=== PATIENT | female | born 1970 | race Caucasian/White ===

== ENCOUNTER → 2016-12-14 | Outpatient (CLI) | payer BC ==
[2016-12-14 07:02] LABS: ANION GAP 9 MEQ/L (8-16); BLOOD UREA NITROGEN 15 MG/DL (7-18); CALCIUM LEVEL 8.6 MG/DL (8.5-10.1); CARBON DIOXIDE LEVEL 28 MEQ/L (21-32); CHLORIDE LEVEL 107 MEQ/L (98-107); CREATININE FOR GFR 0.83 MG/DL (0.55-1.02); GLOMERULAR FILTRATION RATE > 60.0 (>58); GLUCOSE, FASTING 105 MG/DL (70-105); POTASSIUM SERUM 4.1 MEQ/L (3.5-5.1); SODIUM LEVEL 144 MEQ/L (136-145)
== END ==
LOC: M LAB 06:02
PROVIDERS: ATTEND Physician Assistant
DX: E11.9 Type 2 diabetes mellitus without complications (principal)

== ENCOUNTER → 2017-04-13 | Outpatient (CLI) | payer BC ==
[2017-04-13 07:01] LABS: ANION GAP 6 MEQ/L (8-16); BLOOD UREA NITROGEN 18 MG/DL (7-18); CALCIUM LEVEL 8.7 MG/DL (8.5-10.1); CARBON DIOXIDE LEVEL 29 MEQ/L (21-32); CHLORIDE LEVEL 108 MEQ/L (98-107); CREATININE FOR GFR 0.69 MG/DL (0.55-1.02); GLOMERULAR FILTRATION RATE > 60.0 (>58); GLUCOSE, FASTING 104 MG/DL (70-105); SODIUM LEVEL 143 MEQ/L (136-145)
== END ==
LOC: M LAB 06:09
PROVIDERS: ATTEND Family Medicine
DX: E11.9 Type 2 diabetes mellitus without complications (principal)

== ENCOUNTER → 2017-06-16 | Outpatient (CLI) | payer BC ==
[2017-06-16 07:36] LABS: BASO % 0.6 % (0.0-1.0); EOS # 0.1 K/mm3 (0.0-0.50); EOS % 1.7 % (0.0-3.0); LARGE UNSTAINED CELL # 0.1 K/mm3 (0.0-0.4); LARGE UNSTAINED CELL % 2.1 % (0.0-4.0); LYMPH # 2.8 K/mm3 (1.5-4.5); LYMPH % 40.9 % (24.0-44.0); MEAN CORPUSCULAR HEMOGLOBIN 30.2 pg (27.0-33.0); MEAN CORPUSCULAR HGB CONC 33.3 g/dl (32.0-36.5); MEAN CORPUSCULAR VOLUME 90.7 fl (80.0-96.0); MONO # 0.4 K/mm3 (0.0-0.8); MONO % 5.6 % (0.0-5.0); NEUTROPHILS # 3.3 K/mm3 (1.8-7.7); NEUTROPHILS % 49.1 % (36.0-66.0); PLATELET COUNT, AUTOMATED 202 k/mm3 (150-450); RED CELL DISTRIBUTION WIDTH 12.6 % (11.5-14.5); WHITE BLOOD COUNT 6.6 K/mm3 (4.0-10.0)
[2017-06-16 08:16] LABS: ALBUMIN 3.6 GM/DL (3.2-5.2); ALBUMIN/GLOBULIN RATIO 1.09 (1.00-1.93); ALKALINE PHOSPHATASE 57 U/L (45-117); ALT/SGPT 32 U/L (12-78); ANION GAP 9 MEQ/L (8-16); AST/SGOT 19 U/L (15-37); BILIRUBIN,TOTAL 0.3 MG/DL (0.2-1.0); BLOOD UREA NITROGEN 16 MG/DL (7-18); CALCIUM LEVEL 8.9 MG/DL (8.5-10.1); CARBON DIOXIDE LEVEL 25 MEQ/L (21-32); CHLORIDE LEVEL 112 MEQ/L (98-107); CREATININE FOR GFR 0.66 MG/DL (0.55-1.02); GLOMERULAR FILTRATION RATE > 60.0 (>58); GLUCOSE, FASTING 109 MG/DL (70-105); POTASSIUM SERUM 4.2 MEQ/L (3.5-5.1); SODIUM LEVEL 146 MEQ/L (136-145); TOTAL PROTEIN 6.9 GM/DL (6.4-8.2)
== END ==
LOC: M LAB 06:06
PROVIDERS: ATTEND Family Medicine
DX: E55.9 Vitamin D deficiency, unspecified (principal); E11.9 Type 2 diabetes mellitus without complications; K21.9 Gastro-esophageal reflux disease without esophagitis

== ENCOUNTER → 2017-09-29 | Outpatient (CLI) | payer BC ==
[2017-09-29 07:20] LABS: ANION GAP 8 MEQ/L (8-16); BLOOD UREA NITROGEN 21 MG/DL (7-18); CALCIUM LEVEL 8.8 MG/DL (8.5-10.1); CARBON DIOXIDE LEVEL 27 MEQ/L (21-32); CHLORIDE LEVEL 107 MEQ/L (98-107); CHOLESTEROL LEVEL 153 MG/DL (<200); CREATININE FOR GFR 0.89 MG/DL (0.55-1.02); GLOMERULAR FILTRATION RATE > 60.0 (>58); GLUCOSE, FASTING 122 MG/DL (70-105); POTASSIUM SERUM 4.2 MEQ/L (3.5-5.1); SODIUM LEVEL 142 MEQ/L (136-145); TRIGLYCERIDES LEVEL 35 MG/DL (<150)
== END ==
LOC: M LAB 06:27
PROVIDERS: ATTEND Physician Assistant
DX: E11.9 Type 2 diabetes mellitus without complications (principal)

== ENCOUNTER → 2017-12-30 | Outpatient (CLI) | payer BC ==
[2017-12-30 07:27] LABS: ESTIMATED AVERAGE GLUCOSE 140 MG/DL (60-110); HEMOGLOBIN A1c 6.5 %
[2017-12-30 07:28] LABS: ALBUMIN/GLOBULIN RATIO 1.18 (1.00-1.93); ALKALINE PHOSPHATASE 56 U/L (45-117); ALT/SGPT 23 U/L (12-78); ANION GAP 8 MEQ/L (8-16); AST/SGOT 14 U/L (7-37); BILIRUBIN,TOTAL 0.3 MG/DL (0.2-1.0); BLOOD UREA NITROGEN 20 MG/DL (7-18); CALCIUM LEVEL 8.7 MG/DL (8.5-10.1); CARBON DIOXIDE LEVEL 26 MEQ/L (21-32); CHLORIDE LEVEL 108 MEQ/L (98-107); CREATININE FOR GFR 0.81 MG/DL (0.55-1.30); GLOMERULAR FILTRATION RATE > 60.0 (>58); GLUCOSE, FASTING 136 MG/DL (70-100); POTASSIUM SERUM 4.2 MEQ/L (3.5-5.1); SODIUM LEVEL 142 MEQ/L (136-145); TOTAL PROTEIN 7.4 GM/DL (6.4-8.2)
[2017-12-30 07:34] LABS: MALB URINE SIEMENS 12.1 MG/L; MAU/CREAT RATIO 4.7 MCG/MG (0.0-30.0)
== END ==
LOC: M LAB 06:20
DX: E11.9 Type 2 diabetes mellitus without complications (principal)

== ENCOUNTER → 2018-01-13 | Outpatient (CLI) | payer BC ==
[2018-01-13 07:50] LABS: APPEARANCE, URINE MANUAL HAZY (CLEAR); BILIRUBIN, URINE MANUAL NEGATIVE (NEGATIVE); BLOOD URINE MANUAL NEGATIVE (NEGATIVE); COLOR, URINE MANUAL YELLOW (YELLOW); GLUCOSE, URINE (UA) MANUAL NEGATIVE (NEGATIVE); KETONE, URINE MANUAL NEGATIVE (NEGATIVE); LEUKOCYTE ESTERASE, URINE MAN NEGATIVE (NEGATIVE); MICROSCOPIC INDICATED? MAN YES (NO); NITRITE, URINE MANUAL NEGATIVE (NEGATIVE); PROTEIN, URINE MANUAL NEGATIVE (NEGATIVE); UROBILINOGEN, URINE MANUAL NORMAL (NORMAL)
[2018-01-13 07:58] LABS: BACTERIA, URINE NONE SEEN; HYALINE CAST, URINE NONE SEEN /lpf (0-1); MICROSCOPIC EXAM PERFORMED; MUCUS, URINE SMALL AMOUNT (NEGATIVE); RBC, URINE NONE SEEN /hpf (0-3); SQUAMOUS EPITHELIAL CELL URINE SMALL AMOUNT /hpf (SMALL AMT); WBC, URINE 0-1 /hpf (0-3)
== END ==
LOC: M LAB 06:33
DX: R30.0 Dysuria (principal)
CPT/HCPCS: 81000

== ENCOUNTER → 2018-03-22 | Outpatient (CLI) | payer BC ==
[2018-03-22 07:26] LABS: ESTIMATED AVERAGE GLUCOSE 111 MG/DL (60-110); HEMOGLOBIN A1c 5.5 %
[2018-03-22 07:30] LABS: ANION GAP 6 MEQ/L (8-16); BLOOD UREA NITROGEN 15 MG/DL (7-18); CALCIUM LEVEL 8.4 MG/DL (8.5-10.1); CARBON DIOXIDE LEVEL 29 MEQ/L (21-32); CHLORIDE LEVEL 110 MEQ/L (98-107); CREATININE FOR GFR 0.77 MG/DL (0.55-1.30); GLOMERULAR FILTRATION RATE > 60.0 (>58); GLUCOSE, FASTING 93 MG/DL (70-100); SODIUM LEVEL 145 MEQ/L (136-145)
== END ==
LOC: M LAB 06:23
DX: E11.9 Type 2 diabetes mellitus without complications (principal)
CPT/HCPCS: 83036

== ENCOUNTER → 2018-07-13 | Outpatient (CLI) | payer BC ==
[2018-07-13 07:31] LABS: ESTIMATED AVERAGE GLUCOSE 117 MG/DL (60-110); HEMOGLOBIN A1c 5.7 %
[2018-07-13 07:51] LABS: ALBUMIN 3.8 GM/DL (3.2-5.2); ALBUMIN/GLOBULIN RATIO 1.15 (1.00-1.93); ALKALINE PHOSPHATASE 54 U/L (45-117); ALT/SGPT 47 U/L (12-78); ANION GAP 9 MEQ/L (8-16); AST/SGOT 21 U/L (7-37); BILIRUBIN,TOTAL 0.3 MG/DL (0.2-1.0); BLOOD UREA NITROGEN 18 MG/DL (7-18); CALCIUM LEVEL 8.6 MG/DL (8.5-10.1); CARBON DIOXIDE LEVEL 26 MEQ/L (21-32); CHLORIDE LEVEL 106 MEQ/L (98-107); CREATININE FOR GFR 0.78 MG/DL (0.55-1.30); GLOMERULAR FILTRATION RATE > 60.0 (>51); GLUCOSE, FASTING 101 MG/DL (70-100); POTASSIUM SERUM 4.4 MEQ/L (3.5-5.1); SODIUM LEVEL 141 MEQ/L (136-145); TOTAL PROTEIN 7.1 GM/DL (6.4-8.2)
== END ==
LOC: M LAB 06:34
DX: E11.9 Type 2 diabetes mellitus without complications (principal)
CPT/HCPCS: 80053

== ENCOUNTER → 2018-11-10 | Outpatient (REF) | payer BC | LOC: M SFHCLERA 16:42 | PROVIDERS: ATTEND Physician Assistant | DX: N39.0 Urinary tract infection, site not specified (principal) ==

== ENCOUNTER → 2018-12-21 | Outpatient (CLI) | payer BC ==
[2018-12-21 07:55] LABS: HEMOGLOBIN A1c 5.8 %
[2018-12-21 08:06] LABS: MALB URINE SIEMENS 10.3 MG/L; MAU/CREAT RATIO 5.5 MCG/MG (0.0-30.0)
[2018-12-21 08:11] LABS: ALBUMIN 3.8 GM/DL (3.2-5.2); ALT/SGPT 36 U/L (12-78); BILIRUBIN,TOTAL 0.3 MG/DL (0.2-1.0); BLOOD UREA NITROGEN 21 MG/DL (7-18); CALCIUM LEVEL 8.3 MG/DL (8.5-10.1); CARBON DIOXIDE LEVEL 28 MEQ/L (21-32); CHLORIDE LEVEL 108 MEQ/L (98-107); CHOLESTEROL LEVEL 183 MG/DL (<200); CHOLESTEROL RISK RATIO 2.772 (<5); CREATININE FOR GFR 0.78 MG/DL (0.55-1.30); GLOMERULAR FILTRATION RATE > 60.0 (>51); GLUCOSE, FASTING 92 MG/DL (70-100); HDL CHOLESTEROL 66 MG/DL (>40); LDL CHOLESTEROL 110 MG/DL (<100); NON-HDL-C 117 MG/DL; POTASSIUM SERUM 4.2 MEQ/L (3.5-5.1); SODIUM LEVEL 141 MEQ/L (136-145); TOTAL PROTEIN 7.1 GM/DL (6.4-8.2); TRIGLYCERIDES LEVEL 37 MG/DL (<150)
== END ==
LOC: M LAB 06:58
PROVIDERS: ATTEND Physician Assistant
DX: E11.9 Type 2 diabetes mellitus without complications (principal); E66.01 Morbid (severe) obesity due to excess calories

== ENCOUNTER → 2018-12-21 | Outpatient (CLI) | payer BC ==
[2018-12-21 09:47] LABS: ESTRADIOL 45.8 PG/ML; LUTEINIZING HORMONE 14.6 mIU/mL; PROGESTERONE 0.21 NG/ML
[2018-12-23 00:07] LABS: TESTOSTERONE FREE (DIRECT) 1.5 pg/mL (0.0-4.2)
== END ==
LOC: M LAB 07:01
PROVIDERS: ATTEND Obstetrics & Gynecology
DX: N95.1 Menopausal and female climacteric states (principal); E34.9 Endocrine disorder, unspecified; F52.0 Hypoactive sexual desire disorder

== ENCOUNTER → 2019-05-05 | Outpatient (CLI) | payer BC ==
[2019-05-05 10:00] LABS: ESTRADIOL 46.6 PG/ML; FOLLICLE STIMULATING HORMONE 22.3 mIU/mL; PROGESTERONE 0.26 NG/ML
== END ==
LOC: M LAB 07:08
PROVIDERS: ATTEND Obstetrics & Gynecology
DX: F52.0 Hypoactive sexual desire disorder (principal); E34.9 Endocrine disorder, unspecified; N95.1 Menopausal and female climacteric states

== ENCOUNTER → 2019-07-04 | Outpatient (CLI) | payer BC ==
[2019-07-04 07:36] LABS: ALBUMIN 3.7 GM/DL (3.2-5.2); ALT/SGPT 25 U/L (12-78); BILIRUBIN,TOTAL 0.3 MG/DL (0.2-1.0); BLOOD UREA NITROGEN 13 MG/DL (7-18); CALCIUM LEVEL 8.6 MG/DL (8.5-10.1); CARBON DIOXIDE LEVEL 28 MEQ/L (21-32); CHLORIDE LEVEL 108 MEQ/L (98-107); GLOMERULAR FILTRATION RATE > 60.0 (>51); GLUCOSE, FASTING 96 MG/DL (70-100); HEMOGLOBIN A1c 5.3 %; SODIUM LEVEL 142 MEQ/L (136-145); TOTAL PROTEIN 6.6 GM/DL (6.4-8.2)
[2019-07-04 09:39] LABS: TOTAL 25(OH) VITAMIN D 36.2 NG/ML (30.0-100.0)
== END ==
LOC: M LAB 06:36
PROVIDERS: ATTEND Family Medicine
DX: E11.9 Type 2 diabetes mellitus without complications (principal)

== ENCOUNTER → 2019-09-22 | Outpatient (CLI) | payer BC ==
[2019-09-22 18:04] LABS: ESTRADIOL 99.9 PG/ML; FOLLICLE STIMULATING HORMONE 15.7 mIU/mL; LUTEINIZING HORMONE 7.9 mIU/mL; PROGESTERONE 0.21 NG/ML
[2019-09-25 14:56] LABS: TESTOSTERONE FREE (DIRECT) 3.6 pg/mL (0.0-4.2)
== END ==
LOC: M LAB 16:59
PROVIDERS: ATTEND Obstetrics & Gynecology
DX: N95.1 Menopausal and female climacteric states (principal)

== ENCOUNTER → 2019-12-19 | Outpatient (CLI) | payer BC ==
[2019-12-19 08:12] LABS: ALBUMIN 3.6 GM/DL (3.2-5.2); ALT/SGPT 31 U/L (12-78); BILIRUBIN,TOTAL 0.4 MG/DL (0.2-1.0); BLOOD UREA NITROGEN 18 MG/DL (7-18); CARBON DIOXIDE LEVEL 24 MEQ/L (21-32); CHLORIDE LEVEL 112 MEQ/L (98-107); CHOLESTEROL LEVEL 162 MG/DL (<200); CHOLESTEROL RISK RATIO 2.842 (<5); CREATININE FOR GFR 0.71 MG/DL (0.55-1.30); FREE T4 1.02 NG/DL (0.76-1.46); GLOMERULAR FILTRATION RATE > 60.0 (>51); GLUCOSE, FASTING 117 MG/DL (70-100); HDL CHOLESTEROL 57 MG/DL (>40); LDL CHOLESTEROL 97 MG/DL (<100); NON-HDL-C 105 MG/DL; POTASSIUM SERUM 4.1 MEQ/L (3.5-5.1); SODIUM LEVEL 142 MEQ/L (136-145); TOTAL PROTEIN 6.9 GM/DL (6.4-8.2); TRIGLYCERIDES LEVEL 42 MG/DL (<150)
== END ==
LOC: M LAB 07:03
PROVIDERS: ATTEND Physician Assistant
DX: Z00.00 Encounter for general adult medical examination without abnormal findings (principal); E11.9 Type 2 diabetes mellitus without complications; E66.09 Other obesity due to excess calories

== ENCOUNTER → 2019-12-19 | Outpatient (CLI) | payer BC ==
[2019-12-19 07:44] LABS: BASO % 0.5 % (0.0-1.0); EOS # 0.1 10^3/uL (0.0-0.5); EOS % 1.6 % (0.0-3.0); HEMATOCRIT 40.5 % (36.0-47.0); HEMOGLOBIN 13.2 g/dl (12.0-15.5); LYMPH # 3.5 10^3/uL (1.5-5.0); LYMPH % 43.3 % (24.0-44.0); MEAN CORPUSCULAR HEMOGLOBIN 30.1 pg (27.0-33.0); MEAN CORPUSCULAR HGB CONC 32.6 g/dl (32.0-36.5); MEAN CORPUSCULAR VOLUME 92.3 fl (80.0-96.0); MONO # 0.7 10^3/uL (0.0-0.8); MONO % 8.8 % (0.0-5.0); NEUTROPHILS # 3.7 10^3/uL (1.5-8.5); NEUTROPHILS % 45.5 % (36.0-66.0); PLATELET COUNT, AUTOMATED 284 10^3/uL (150-450); RED BLOOD COUNT 4.39 10^6/uL (4.00-5.40)
[2019-12-19 08:15] LABS: ALBUMIN 3.6 GM/DL (3.2-5.2); ALT/SGPT 30 U/L (12-78); BILIRUBIN,TOTAL 0.3 MG/DL (0.2-1.0); BLOOD UREA NITROGEN 18 MG/DL (7-18); CALCIUM LEVEL 8.2 MG/DL (8.5-10.1); CARBON DIOXIDE LEVEL 24 MEQ/L (21-32); CHLORIDE LEVEL 113 MEQ/L (98-107); CHOLESTEROL LEVEL 162 MG/DL (<200); CHOLESTEROL RISK RATIO 2.793 (<5); CPK CREATINE PHOSPHOKINASE 109 U/L (26-192); CREATININE FOR GFR 0.67 MG/DL (0.55-1.30); FERRITIN 27 NG/ML (8-252); FREE T3 2.5 PG/ML (2.2-4.0); FREE T4 1.03 NG/DL (0.76-1.46); GLOMERULAR FILTRATION RATE > 60.0 (>51); GLUCOSE, FASTING 118 MG/DL (70-100); HDL CHOLESTEROL 58 MG/DL (>40); IRON (FE) 93 UG/DL (50-170); LDL CHOLESTEROL 96 MG/DL (<100); NON-HDL-C 104 MG/DL; POTASSIUM SERUM 4.1 MEQ/L (3.5-5.1); SODIUM LEVEL 142 MEQ/L (136-145); TOTAL PROTEIN 6.9 GM/DL (6.4-8.2); TRIGLYCERIDES LEVEL 42 MG/DL (<150); URIC ACID 5.2 MG/DL (2.6-6.0)
[2019-12-19 09:46] LABS: TOTAL 25(OH) VITAMIN D 55.9 NG/ML (30.0-100.0)
[2019-12-19 09:48] LABS: ESTRADIOL 76.2 PG/ML; PROGESTERONE 0.22 NG/ML; VITAMIN B12 LEVEL 631 PG/ML (247-911)
[2019-12-19 09:49] LABS: FOLLICLE STIMULATING HORMONE 8.5 mIU/mL
[2019-12-21 00:06] LABS: INSULIN LEVEL 13.8 uIU/mL (2.6-24.9); TESTOSTERONE FREE (DIRECT) 3.3 pg/mL (0.0-4.2)
== END ==
LOC: M LAB 07:00
PROVIDERS: ATTEND Family Medicine
DX: N95.1 Menopausal and female climacteric states (principal); R53.83 Other fatigue; R63.5 Abnormal weight gain; E34.9 Endocrine disorder, unspecified; Z79.899 Other long term (current) drug therapy

== ENCOUNTER → 2020-03-15 | Outpatient (CLI) | payer BC | LOC: M LABSMTC 14:09 | PROVIDERS: ATTEND Family Medicine | DX: Z11.59 Encounter for screening for other viral diseases (principal) | CPT/HCPCS: C9803; U0003 ==

== ENCOUNTER → 2020-04-15 | Outpatient (CLI) | payer BC ==
[2020-04-15 07:33] LABS: BASO % 0.4 % (0.0-1.0); EOS # 0.1 10^3/uL (0.0-0.5); EOS % 1.1 % (0.0-3.0); HEMATOCRIT 38.3 % (36.0-47.0); HEMOGLOBIN 12.2 g/dl (12.0-15.5); LYMPH # 4.7 10^3/uL (1.5-5.0); MEAN CORPUSCULAR HEMOGLOBIN 30.2 pg (27.0-33.0); MEAN CORPUSCULAR HGB CONC 31.9 g/dl (32.0-36.5); MEAN CORPUSCULAR VOLUME 94.8 fl (80.0-96.0); MONO # 0.6 10^3/uL (0.0-0.8); MONO % 6.3 % (0.0-5.0); PLATELET COUNT, AUTOMATED 261 10^3/uL (150-450); RED BLOOD COUNT 4.04 10^6/uL (4.00-5.40); WHITE BLOOD COUNT 9.5 10^3/uL (4.0-10.0)
[2020-04-15 08:07] LABS: FREE T3 2.3 PG/ML (2.2-4.0); FREE T4 1.03 NG/DL (0.76-1.46); THYROID STIMULATING HORMONE 2.68 uIU/ML (0.358-3.740)
[2020-04-15 10:01] LABS: ESTRADIOL 78.2 PG/ML; LUTEINIZING HORMONE 8.4 mIU/mL; PROGESTERONE 0.39 NG/ML
[2020-04-16 16:08] LABS: TESTOSTERONE FREE (DIRECT) 3.2 pg/mL (0.0-4.2)
== END ==
LOC: M LAB 06:32
PROVIDERS: ATTEND Family Medicine
DX: N95.1 Menopausal and female climacteric states (principal); E34.9 Endocrine disorder, unspecified; E07.89 Other specified disorders of thyroid

== ENCOUNTER → 2020-05-28 | Outpatient (CLI) | payer BC ==
[2020-06-30 10:59] LABS: BASO % 0.3 % (0.0-1.0); EOS # 0.1 10^3/uL (0.0-0.5); EOS % 0.8 % (0.0-3.0); HEMATOCRIT 40.3 % (36.0-47.0); LYMPH # 4.1 10^3/uL (1.5-5.0); LYMPH % 45.9 % (24.0-44.0); MEAN CORPUSCULAR HEMOGLOBIN 30.7 pg (27.0-33.0); MEAN CORPUSCULAR HGB CONC 32.3 g/dl (32.0-36.5); MEAN CORPUSCULAR VOLUME 95.3 fl (80.0-96.0); MONO # 0.7 10^3/uL (0.0-0.8); MONO % 7.4 % (0.0-5.0); NEUTROPHILS % 45.5 % (36.0-66.0); PLATELET COUNT, AUTOMATED 272 10^3/uL (150-450); RED BLOOD COUNT 4.23 10^6/uL (4.00-5.40); WHITE BLOOD COUNT 8.8 10^3/uL (4.0-10.0)
[2020-07-08 08:13] LABS: TESTOSTERONE FREE (DIRECT) See Separate Report PG/ML
[2020-07-08 08:14] LABS: TESTOSTERONE TOTAL FOR T&D See Separate Report NG/DL
[2020-07-12 20:42] LABS: ESTRADIOL 129.6 PG/ML; FOLLICLE STIMULATING HORMONE 7.3 mIU/mL; PROGESTERONE 0.27 NG/ML
== END ==
LOC: M LAB 07:17
PROVIDERS: ATTEND Family Medicine
DX: N93.1 Pre-pubertal vaginal bleeding (principal); E34.9 Endocrine disorder, unspecified; E07.89 Other specified disorders of thyroid

== ENCOUNTER → 2020-07-16 | Outpatient (CLI) | payer BC ==
[2020-07-16 06:58] LABS: HEMATOCRIT 39.8 % (36.0-47.0); HEMOGLOBIN 12.7 g/dl (12.0-15.5); MEAN CORPUSCULAR HEMOGLOBIN 29.5 pg (27.0-33.0); MEAN CORPUSCULAR HGB CONC 31.9 g/dl (32.0-36.5); MEAN CORPUSCULAR VOLUME 92.6 fl (80.0-96.0); PLATELET COUNT, AUTOMATED 237 10^3/uL (150-450)
[2020-07-16 07:14] LABS: HEMOGLOBIN A1c 5.5 %
[2020-07-16 07:31] LABS: ALBUMIN 3.6 GM/DL (3.2-5.2); ALT/SGPT 33 U/L (12-78); BILIRUBIN,TOTAL 0.4 MG/DL (0.2-1.0); BLOOD UREA NITROGEN 15 MG/DL (7-18); CALCIUM LEVEL 8.6 MG/DL (8.5-10.1); CARBON DIOXIDE LEVEL 29 MEQ/L (21-32); CHLORIDE LEVEL 107 MEQ/L (98-107); CHOLESTEROL LEVEL 171 MG/DL (<200); CREATININE FOR GFR 0.79 MG/DL (0.55-1.30); GLOMERULAR FILTRATION RATE > 60.0 (>51); GLUCOSE, FASTING 112 MG/DL (70-100); HDL CHOLESTEROL 77 MG/DL (>40); LDL CHOLESTEROL 87 MG/DL (<100); NON-HDL-C 94 MG/DL; POTASSIUM SERUM 3.9 MEQ/L (3.5-5.1); SODIUM LEVEL 142 MEQ/L (136-145); TOTAL PROTEIN 7.2 GM/DL (6.4-8.2); TRIGLYCERIDES LEVEL 35 MG/DL (<150)
[2020-07-16 07:40] LABS: LYMPHOCYTES 39 % (16-44); MONOCYTES 6 % (0-5); NEUTROPHILS 54 % (28-66); PLATELET ESTIMATE NORMAL (NORMAL)
[2020-07-16 07:41] LABS: ANISOCYTOSIS 1+
[2020-07-16 07:42] LABS: MALB URINE SIEMENS 14.2 MG/L; MAU/CREAT RATIO 5.2 MCG/MG (0.0-30.0)
== END ==
LOC: M LAB 06:32
PROVIDERS: ATTEND Family Medicine
DX: E11.9 Type 2 diabetes mellitus without complications (principal)

== ENCOUNTER → 2020-08-02 | Outpatient (CLI) | payer BC ==
[2020-08-02 07:58] LABS: HEMATOCRIT 39.5 % (36.0-47.0); HEMOGLOBIN 12.2 g/dl (12.0-15.5); MEAN CORPUSCULAR HEMOGLOBIN 29.6 pg (27.0-33.0); MEAN CORPUSCULAR HGB CONC 30.9 g/dl (32.0-36.5); MEAN CORPUSCULAR VOLUME 95.9 fl (80.0-96.0); PLATELET COUNT, AUTOMATED 252 10^3/uL (150-450); RED BLOOD COUNT 4.12 10^6/uL (4.00-5.40); WHITE BLOOD COUNT 8.7 10^3/uL (4.0-10.0)
[2020-08-02 08:23] LABS: ATYPICAL LYMPH 2 % (0-5); EOSINOPHILS 3 % (0-3); LYMPHOCYTES 49 % (16-44); MONOCYTES 1 % (0-5); NEUTROPHILS 45 % (28-66); NUCLEATED RED BLOOD CELL 1 % (0-0)
[2020-08-02 08:24] LABS: SMUDGE CELLS 1+
[2020-08-02 08:25] LABS: PLATELET ESTIMATE NORMAL (NORMAL)
[2020-08-02 09:18] LABS: ESTRADIOL 53.5 PG/ML; FOLLICLE STIMULATING HORMONE 19.1 mIU/mL; PROGESTERONE 0.24 NG/ML
[2020-08-03 14:08] LABS: TESTOSTERONE FREE (DIRECT) 3.6 pg/mL (0.0-4.2)
== END ==
LOC: M LAB 07:30
PROVIDERS: ATTEND Family Medicine
DX: N95.1 Menopausal and female climacteric states (principal); E34.9 Endocrine disorder, unspecified; E07.89 Other specified disorders of thyroid

== ENCOUNTER → 2020-11-05 | Outpatient (CLI) | payer BC ==
[2020-11-05 06:52] LABS: BASO # 0.1 10^3/uL (0.0-0.2); BASO % 0.5 % (0.0-1.0); EOS # 0.1 10^3/uL (0.0-0.5); EOS % 1.2 % (0.0-3.0); HEMATOCRIT 41.7 % (36.0-47.0); HEMOGLOBIN 12.8 g/dl (12.0-15.5); LYMPH # 4.7 10^3/uL (1.5-5.0); LYMPH % 47.1 % (24.0-44.0); MEAN CORPUSCULAR HEMOGLOBIN 29.2 pg (27.0-33.0); MEAN CORPUSCULAR HGB CONC 30.7 g/dl (32.0-36.5); MEAN CORPUSCULAR VOLUME 95.2 fl (80.0-96.0); MONO # 0.8 10^3/uL (0.0-0.8); NEUTROPHILS # 4.3 10^3/uL (1.5-8.5); PLATELET COUNT, AUTOMATED 253 10^3/uL (150-450); RED BLOOD COUNT 4.38 10^6/uL (4.00-5.40); WHITE BLOOD COUNT 9.9 10^3/uL (4.0-10.0)
[2020-11-05 11:44] LABS: FOLLICLE STIMULATING HORMONE 22.2 mIU/mL; PROGESTERONE 0.57 NG/ML
[2020-11-06 19:07] LABS: TESTOSTERONE FREE (DIRECT) 6.9 pg/mL (0.0-4.2)
== END ==
LOC: M LAB 06:22
PROVIDERS: ATTEND Family Medicine
DX: Z00.00 Encounter for general adult medical examination without abnormal findings (principal)

== ENCOUNTER → 2021-01-11 | Outpatient (CLI) | payer BC ==
--- NOTE | 2021-01-11 17:47 | ECGEPIP ---
[facility] Test Date: 2021-01-11 Pat Name: MIRIAM WEBER Department: Room: - Gender: Female E Business Manager: maryann : 1970 Requested By: Jade Kovacs Order Number: [id number] Reading MD: Philippe Samuel Measurements Intervals [place] Rate: 51 P: 15 NC: 150 QRS: 25 QRSD: 86 T: 24 QT: 416 QTc: 383 Interpretive Statements Sinus bradycardia Early anterior R wave progression Nonspecific T wave abnormality Comparison tracing not on file Electronically Signed on 01-11-2021 17:47:32 EDT by Philippe Samuel
== END ==
LOC: M EKG 09:42
PROVIDERS: ATTEND Physician Assistant Medical
DX: E11.9 Type 2 diabetes mellitus without complications (principal); Z79.899 Other long term (current) drug therapy; R00.1 Bradycardia, unspecified

== ENCOUNTER → 2021-01-12 | Outpatient (CLI) | payer BC ==
[2021-01-12 09:02] LABS: ALBUMIN 3.7 GM/DL (3.2-5.2); ALT/SGPT 26 U/L (12-78); BILIRUBIN,TOTAL 0.4 MG/DL (0.2-1.0); BLOOD UREA NITROGEN 19 MG/DL (7-18); CALCIUM LEVEL 8.5 MG/DL (8.5-10.1); CARBON DIOXIDE LEVEL 30 MEQ/L (21-32); CHLORIDE LEVEL 106 MEQ/L (98-107); CREATININE FOR GFR 0.73 MG/DL (0.55-1.30); GLOMERULAR FILTRATION RATE > 60.0 (>51); GLUCOSE, FASTING 95 MG/DL (70-100); POTASSIUM SERUM 3.9 MEQ/L (3.5-5.1); SODIUM LEVEL 140 MEQ/L (136-145); TOTAL PROTEIN 6.9 GM/DL (6.4-8.2)
[2021-01-12 10:24] LABS: HEMOGLOBIN A1c 5.2 %
[2021-01-13 12:04] LABS: TOTAL 25(OH) VITAMIN D 80.4 NG/ML (30.0-100.0)
== END ==
LOC: M LAB 08:11
PROVIDERS: ATTEND Physician Assistant
DX: Z00.00 Encounter for general adult medical examination without abnormal findings (principal); E11.9 Type 2 diabetes mellitus without complications; E55.9 Vitamin D deficiency, unspecified

== ENCOUNTER → 2021-06-05 | Outpatient (CLI) | payer BC ==
[2021-06-05 07:41] LABS: HEMOGLOBIN A1c 5.5 %
[2021-06-05 07:57] LABS: ALBUMIN 3.5 GM/DL (3.2-5.2); ALT/SGPT 31 U/L (12-78); BILIRUBIN,TOTAL 0.4 MG/DL (0.2-1.0); BLOOD UREA NITROGEN 14 MG/DL (7-18); CALCIUM LEVEL 8.2 MG/DL (8.5-10.1); CARBON DIOXIDE LEVEL 26 MEQ/L (21-32); CHLORIDE LEVEL 109 MEQ/L (98-107); CHOLESTEROL LEVEL 160 MG/DL (<200); FREE T4 1.07 NG/DL (0.76-1.46); GLOMERULAR FILTRATION RATE > 60.0 (>51); GLUCOSE, FASTING 128 MG/DL (70-100); HDL CHOLESTEROL 62 MG/DL (>40); LDL CHOLESTEROL 88 MG/DL (<100); NON-HDL-C 98 MG/DL; POTASSIUM SERUM 3.7 MEQ/L (3.5-5.1); SODIUM LEVEL 140 MEQ/L (136-145); TOTAL PROTEIN 6.7 GM/DL (6.4-8.2); TRIGLYCERIDES LEVEL 51 MG/DL (<150)
[2021-06-05 08:00] LABS: MALB URINE SIEMENS 13.5 MG/L; MAU/CREAT RATIO 6.1 MCG/MG (0.0-30.0)
[2021-06-05 11:36] LABS: TOTAL 25(OH) VITAMIN D 41.2 NG/ML (30.0-100.0)
[2021-06-05 11:37] LABS: VITAMIN B12 LEVEL 1701 PG/ML
[2021-06-05 11:38] LABS: FOLATE 18.1 NG/ML
== END ==
LOC: M LAB 06:47
PROVIDERS: ATTEND Family Medicine
DX: E11.9 Type 2 diabetes mellitus without complications (principal); E55.9 Vitamin D deficiency, unspecified; Z13.29 Encounter for screening for other suspected endocrine disorder; F45.8 Other somatoform disorders

== ENCOUNTER → 2021-06-07 | Outpatient (CLI) | payer BC ==
[2021-06-07 10:01] LABS: BASO % 0.5 % (0.0-1.0); EOS # 0.1 10^3/uL (0.0-0.5); EOS % 1.4 % (0.0-3.0); HEMATOCRIT 38.7 % (36.0-47.0); HEMOGLOBIN 12.4 g/dl (12.0-15.5); LYMPH # 3.7 10^3/uL (1.5-5.0); LYMPH % 50.5 % (24.0-44.0); MEAN CORPUSCULAR HEMOGLOBIN 30.2 pg (27.0-33.0); MEAN CORPUSCULAR VOLUME 94.2 fl (80.0-96.0); MONO # 0.6 10^3/uL (0.0-0.8); MONO % 8.6 % (2.0-8.0); NEUTROPHILS # 2.8 10^3/uL (1.5-8.5); NEUTROPHILS % 38.9 % (36.0-66.0); PLATELET COUNT, AUTOMATED 209 10^3/uL (150-450); RED BLOOD COUNT 4.11 10^6/uL (4.00-5.40); WHITE BLOOD COUNT 7.3 10^3/uL (4.0-10.0)
[2021-06-09 12:47] LABS: FOLLICLE STIMULATING HORMONE 16.8 mIU/mL; PROGESTERONE 0.28 NG/ML
[2021-06-09 14:08] LABS: TESTOSTERONE FREE (DIRECT) 3.7 pg/mL (0.0-4.2)
== END ==
LOC: M LAB 08:37
PROVIDERS: ATTEND Nurse Practitioner Family
DX: R89.1 Abnormal level of hormones in specimens from other organs, systems and tissues (principal); N95.1 Menopausal and female climacteric states; E34.9 Endocrine disorder, unspecified; E07.89 Other specified disorders of thyroid

== ENCOUNTER → 2022-01-28 | Outpatient (CLI) | payer BC ==
[2022-01-28 08:52] LABS: BLOOD UREA NITROGEN 22 MG/DL (7-18); CALCIUM LEVEL 9.7 MG/DL (8.5-10.1); CARBON DIOXIDE LEVEL 28 MEQ/L (21-32); CHLORIDE LEVEL 107 MEQ/L (98-107); CREATININE FOR GFR 0.72 MG/DL (0.55-1.30); GLOMERULAR FILTRATION RATE > 60.0 (>51); GLUCOSE, FASTING 102 MG/DL (70-100); POTASSIUM SERUM 4.4 MEQ/L (3.5-5.1); SODIUM LEVEL 140 MEQ/L (136-145)
[2022-01-28 09:12] LABS: HEMOGLOBIN A1c 5.7 %
== END ==
LOC: M LAB 07:10
PROVIDERS: ATTEND Physician Assistant
DX: E11.9 Type 2 diabetes mellitus without complications (principal)

== ENCOUNTER → 2022-02-05 | Outpatient (CLI) | payer BC | LOC: M EKG 14:36 | PROVIDERS: ATTEND Physician Assistant Medical | DX: Z79.899 Other long term (current) drug therapy (principal) ==

== ENCOUNTER → 2022-03-13 | Outpatient (CLI) | payer BC | LOC: M PLALAB 14:54 | PROVIDERS: ATTEND Family Medicine | DX: M51.36 Other intervertebral disc degeneration, lumbar region (principal); M51.37 Other intervertebral disc degeneration, lumbosacral region ==

== ENCOUNTER → 2022-04-29 | Outpatient (CLI) | payer BC | LOC: M RAD 06:52 | PROVIDERS: ATTEND Family Medicine | DX: M51.16 Intervertebral disc disorders with radiculopathy, lumbar region (principal) ==

== ENCOUNTER → 2022-05-14 | Outpatient (CLI) | payer BC | LOC: M WHC 14:38 | PROVIDERS: ATTEND Family Medicine | DX: Z13.820 Encounter for screening for osteoporosis (principal); Z68.37 Body mass index [BMI] 37.0-37.9, adult; Z12.31 Encounter for screening mammogram for malignant neoplasm of breast; Z80.3 Family history of malignant neoplasm of breast ==

== ENCOUNTER → 2022-07-31 | Outpatient (CLI) | payer BC ==
[2022-07-31 07:00] LABS: BASO % 0.5 % (0.0-1.0); EOS # 0.1 10^3/uL (0.0-0.5); EOS % 1.2 % (0.0-3.0); HEMATOCRIT 40.9 % (36.0-47.0); HEMOGLOBIN 12.8 g/dl (12.0-15.5); LYMPH # 4.2 10^3/uL (1.5-5.0); LYMPH % 57.8 % (24.0-44.0); MEAN CORPUSCULAR HEMOGLOBIN 29.6 pg (27.0-33.0); MEAN CORPUSCULAR HGB CONC 31.3 g/dl (32.0-36.5); MEAN CORPUSCULAR VOLUME 94.5 fl (80.0-96.0); MONO # 0.5 10^3/uL (0.0-0.8); MONO % 6.2 % (2.0-8.0); NEUTROPHILS # 2.5 10^3/uL (1.5-8.5); NEUTROPHILS % 34.2 % (36.0-66.0); PLATELET COUNT, AUTOMATED 221 10^3/uL (150-450); RED BLOOD COUNT 4.33 10^6/uL (4.00-5.40); WHITE BLOOD COUNT 7.3 10^3/uL (4.0-10.0)
[2022-07-31 07:14] LABS: HEMOGLOBIN A1c 5.5 %
[2022-07-31 07:42] LABS: ALBUMIN 3.7 GM/DL (3.2-5.2); ALT/SGPT 30 U/L (12-78); BILIRUBIN,TOTAL 0.5 MG/DL (0.2-1.0); BLOOD UREA NITROGEN 16 MG/DL (7-18); CALCIUM LEVEL 8.9 MG/DL (8.5-10.1); CARBON DIOXIDE LEVEL 30 MEQ/L (21-32); CHLORIDE LEVEL 107 MEQ/L (98-107); CHOLESTEROL LEVEL 167 MG/DL (<200); CHOLESTEROL RISK RATIO 2.197 (<5); CREATININE FOR GFR 0.71 MG/DL (0.55-1.30); FREE T4 1.09 NG/DL (0.76-1.46); GLOMERULAR FILTRATION RATE > 60.0 (>51); GLUCOSE, FASTING 106 MG/DL (70-100); HDL CHOLESTEROL 76 MG/DL (>40); LDL CHOLESTEROL 83 MG/DL (<100); NON-HDL-C 91 MG/DL; POTASSIUM SERUM 4.2 MEQ/L (3.5-5.1); SODIUM LEVEL 139 MEQ/L (136-145); TRIGLYCERIDES LEVEL 39 MG/DL (<150)
[2022-07-31 07:44] LABS: MAU/CREAT RATIO 4.9 MCG/MG (0.0-30.0)
[2022-07-31 09:29] LABS: TOTAL 25(OH) VITAMIN D 34.6 NG/ML (30.0-100.0)
== END ==
LOC: M LAB 06:22
PROVIDERS: ATTEND Family Medicine
DX: E55.9 Vitamin D deficiency, unspecified (principal); E11.9 Type 2 diabetes mellitus without complications

== ENCOUNTER → 2022-09-25 | Outpatient (CLI) | payer BC ==
[2022-09-25 08:21] LABS: POTASSIUM SERUM 4.4 MMOL/L (3.5-5.1)
[2022-09-25 08:28] LABS: MAGNESIUM LEVEL 1.9 MG/DL (1.8-2.4)
[2022-09-25 08:32] LABS: RHEUMATOID FACTOR QUANT < 3.5 IU/ML (<14)
[2022-09-26 21:09] LABS: ANA (HEP2) Negative (.)
== END ==
LOC: M LAB 07:17
PROVIDERS: ATTEND Nurse Practitioner Adult Health
DX: M25.549 Pain in joints of unspecified hand (principal); G47.62 Sleep related leg cramps

== ENCOUNTER → 2023-01-16 | Outpatient (CLI) | payer OTHER | LOC: M LAB 09:40 | PROVIDERS: ATTEND Family Medicine | DX: E11.9 Type 2 diabetes mellitus without complications (principal) ==

== ENCOUNTER 2023-04-10 23:56 | Emergency (ER) | payer OTHER ==
[~2023-04-10] VITALS: Ht 154.9 cm; Wt 96.9 kg
[2023-04-11] MEDS ORDERED: TIZA2TA (00:08)
[2023-04-11] MEDS ORDERED: SEMA2PEN (00:08)
[2023-04-11] MEDS ORDERED: IBUP1TAB6 PO (00:08)
[2023-04-11] MEDS ORDERED: ACET-897 PO (00:08)
[2023-04-11] MEDS ORDERED: KETOROLAC 30 MG/ML 1ML VIAL IV ONE (01:50)
[2023-04-11] MEDS ORDERED: METHOCARBAMOL 1,000 MG/10 ML VIAL IV ONE (01:50)
[2023-04-11 03:26] VITALS: BP 149/87; TEMP 96.5; O2SAT 98
[2023-04-11] MEDS ORDERED: KETO10TAB PO (03:34)
[2023-04-11] MEDS ORDERED: NEUR300C PO (03:34)
[2023-04-11] MEDS ORDERED: METH-1165 PO (03:34)
[2023-04-11] MEDS ORDERED: GABAPENTIN 300 MG CAP PO ONE (03:35)
== END 2023-04-11 03:49 | disposition home or self-care (01) ==
LOC: M ED 23:56
DX: S46.912A Strain of unspecified muscle, fascia and tendon at shoulder and upper arm level, left arm, initial encounter (principal); X58.XXXA Exposure to other specified factors, initial encounter; Y92.89 Other specified places as the place of occurrence of the external cause; Y93.89 Activity, other specified; Y99.8 Other external cause status; E11.9 Type 2 diabetes mellitus without complications; Z79.899 Other long term (current) drug therapy
CPT/HCPCS: 96374; 96375; 99284; J1885; J2800

== ENCOUNTER → 2023-05-15 | Outpatient (CLI) | payer OTHER ==
[~2023-05-15] MED LIST: ACET-897 PO; IBUP1TAB6 PO; KETO10TAB PO; METH-1165 PO; NEUR300C PO; SEMA2PEN; TIZA2TA
[2023-05-15 09:13] LABS: HEMATOCRIT 38.7 % (36.0-47.0); HEMOGLOBIN 12.1 g/dl (12.0-15.5); MEAN CORPUSCULAR HEMOGLOBIN 29.5 pg (27.0-33.0); MEAN CORPUSCULAR HGB CONC 31.3 g/dl (32.0-36.5); MEAN CORPUSCULAR VOLUME 94.4 fl (80.0-96.0); PLATELET COUNT, AUTOMATED 229 10^3/uL (150-450); WHITE BLOOD COUNT 8.7 10^3/uL (4.0-10.0)
[2023-05-15 09:35] LABS: CREATININE, URINE 129.3 MG/DL; MAU/CREAT RATIO 13.9 MCG/MG (0.0-30.0)
[2023-05-15 09:40] LABS: ALBUMIN 3.7 G/DL (3.2-5.2); ALKALINE PHOSPHATASE 50 U/L (46-116); ALT/SGPT 70 U/L (7.0-40); AST/SGOT 33 U/L (<34); BILIRUBIN,TOTAL 0.4 MG/DL (0.3-1.2); BLOOD UREA NITROGEN 22 MG/DL (9-23); CALCIUM LEVEL 8.9 MG/DL (8.5-10.1); CARBON DIOXIDE LEVEL 30 MMOL/L (20-31); CHLORIDE LEVEL 107 MMOL/L (98-107); CHOLESTEROL LEVEL 156 MG/DL (<200); CHOLESTEROL RISK RATIO 2.29 (<5); FREE T4 1.22 NG/DL (0.89-1.76); GLOMERULAR FILTRATION RATE > 60.0 (>51); GLUCOSE, FASTING 112 MG/DL (60-100); HDL CHOLESTEROL 67.9 MG/DL (>40); LDL CHOLESTEROL 81.3 MG/DL (<100); NON-HDL-C 88.1 MG/DL; POTASSIUM SERUM 4.4 MMOL/L (3.5-5.1); SODIUM LEVEL 141 MMOL/L (136-145); THYROID STIMULATING HORMONE 1.186 uIU/ML (0.55-4.78); TOTAL 25(OH) VITAMIN D 37.4 NG/ML (20.0-100.0); TOTAL PROTEIN 6.4 G/DL (5.7-8.2); TRIGLYCERIDES LEVEL 34 MG/DL (<150)
[2023-05-15 10:02] LABS: ATYPICAL LYMPH 5 % (0-5); EOSINOPHILS 5 % (0-3); LYMPHOCYTES 50 % (16-44); MONOCYTES 5 % (0-5); NEUTROPHILS 35 % (28-66)
[2023-05-15 10:03] LABS: OVALOCYTES 1+; SMUDGE CELLS 1+
[2023-05-15 10:04] LABS: PLATELET ESTIMATE NORMAL (NORMAL)
== END ==
LOC: M LAB 08:25
PROVIDERS: ATTEND Family Medicine
DX: E11.9 Type 2 diabetes mellitus without complications (principal); E55.9 Vitamin D deficiency, unspecified

== ENCOUNTER → 2023-08-19 | Outpatient (CLI) | payer OTHER ==
[2023-08-19 07:14] LABS: BASO % 0.5 % (0.0-1.0); EOS # 0.2 10^3/uL (0.0-0.5); EOS % 2.8 % (0.0-3.0); HEMATOCRIT 40.4 % (36.0-47.0); LYMPH # 3.1 10^3/uL (1.5-5.0); LYMPH % 50.6 % (24.0-44.0); MEAN CORPUSCULAR HEMOGLOBIN 29.7 pg (27.0-33.0); MEAN CORPUSCULAR HGB CONC 32.2 g/dl (32.0-36.5); MEAN CORPUSCULAR VOLUME 92.2 fl (80.0-96.0); MONO # 0.6 10^3/uL (0.0-0.8); MONO % 10.3 % (2.0-8.0); NEUTROPHILS # 2.2 10^3/uL (1.5-8.5); NEUTROPHILS % 35.8 % (36.0-66.0); PLATELET COUNT, AUTOMATED 174 10^3/uL (150-450); RED BLOOD COUNT 4.38 10^6/uL (4.00-5.40); WHITE BLOOD COUNT 6.1 10^3/uL (4.0-10.0)
[2023-08-19 07:36] LABS: MAU/CREAT RATIO 2.7 MCG/MG (0.0-30.0)
[2023-08-19 07:40] LABS: ALBUMIN 3.6 G/DL (3.2-5.2); ALKALINE PHOSPHATASE 53 U/L (46-116); ALT/SGPT 31 U/L (7.0-40); AST/SGOT 22 U/L (<34); BILIRUBIN,TOTAL 0.3 MG/DL (0.3-1.2); BLOOD UREA NITROGEN 20 MG/DL (9-23); CALCIUM LEVEL 8.8 MG/DL (8.5-10.1); CARBON DIOXIDE LEVEL 28 MMOL/L (20-31); CHLORIDE LEVEL 110 MMOL/L (98-107); CREATININE FOR GFR 0.71 MG/DL (0.55-1.30); GLOMERULAR FILTRATION RATE > 60.0 (>51); GLUCOSE, FASTING 128 MG/DL (60-100); SODIUM LEVEL 145 MMOL/L (136-145); TOTAL PROTEIN 6.9 G/DL (5.7-8.2)
[2023-08-19 07:46] LABS: HEMOGLOBIN A1c 5.8 % (4.0-6.0)
== END ==
LOC: M LAB 06:48
PROVIDERS: ATTEND Nurse Practitioner Adult Health
DX: E11.9 Type 2 diabetes mellitus without complications (principal)

== ENCOUNTER → 2023-11-24 | Outpatient (CLI) | payer BC ==
[~2023-11-24] MED LIST changes: +E-Z-GAS II EFFERVESCENT PACKET (SODIUM BICARB./CITRIC ACID/SIMETHICONE) As Ordered ONE; +E-Z-HD 98% w/w 340GM SUSP BTL As Ordered ONE; +E-Z-PAQUE 96% w/w SUSP 176GM BTL As Ordered ONE
== END ==
LOC: M RAD 09:16
PROVIDERS: ATTEND Nurse Practitioner Adult Health
DX: K59.00 Constipation, unspecified (principal); R13.14 Dysphagia, pharyngoesophageal phase

== ENCOUNTER → 2023-11-30 | Outpatient (CLI) | payer BC ==
[~2023-11-30] MED LIST changes: -E-Z-GAS II EFFERVESCENT PACKET (SODIUM BICARB./CITRIC ACID/SIMETHICONE) As Ordered ONE; -E-Z-HD 98% w/w 340GM SUSP BTL As Ordered ONE; -E-Z-PAQUE 96% w/w SUSP 176GM BTL As Ordered ONE; +PROHANCE 279.3MG/ML 15ML VIAL ONE; +PROHANCE 279.3MG/ML 5ML VIAL ONE
== END ==
LOC: M PLAIMG 07:19
PROVIDERS: ATTEND Student in an Organized Health Care Education/Training Program
DX: G95.9 Disease of spinal cord, unspecified (principal); R20.2 Paresthesia of skin; E11.9 Type 2 diabetes mellitus without complications
CPT/HCPCS: 70553; A9576

== ENCOUNTER → 2023-12-03 | Outpatient (CLI) | payer BC | LOC: M PLAIMG 08:07 | DX: G95.9 Disease of spinal cord, unspecified (principal); R20.2 Paresthesia of skin; E11.9 Type 2 diabetes mellitus without complications; M51.24 Other intervertebral disc displacement, thoracic region; M48.02 Spinal stenosis, cervical region | CPT/HCPCS: 72156; 72157; A9576 ==

== ENCOUNTER → 2024-01-14 | Outpatient (CLI) | payer BC ==
[~2024-01-14] MED LIST changes: -PROHANCE 279.3MG/ML 15ML VIAL ONE; -PROHANCE 279.3MG/ML 5ML VIAL ONE
== END ==
LOC: M PLAIMG 13:56
PROVIDERS: ATTEND Nurse Practitioner Gerontology
DX: G95.9 Disease of spinal cord, unspecified (principal); M48.02 Spinal stenosis, cervical region

== ENCOUNTER → 2024-02-22 | Outpatient (CLI) | payer BC ==
[2024-02-22 07:49] LABS: BASO % 0.3 % (0.0-1.0); EOS # 0.2 10^3/uL (0.0-0.5); EOS % 1.6 % (0.0-3.0); HEMATOCRIT 41.1 % (36.0-47.0); LYMPH # 6.4 10^3/uL (1.5-5.0); LYMPH % 60.7 % (24.0-44.0); MEAN CORPUSCULAR HEMOGLOBIN 29.3 pg (27.0-33.0); MEAN CORPUSCULAR HGB CONC 31.6 g/dl (32.0-36.5); MEAN CORPUSCULAR VOLUME 92.6 fl (80.0-96.0); MONO # 0.6 10^3/uL (0.0-0.8); MONO % 5.7 % (2.0-8.0); NEUTROPHILS # 3.3 10^3/uL (1.5-8.5); NEUTROPHILS % 31.5 % (36.0-66.0); PLATELET COUNT, AUTOMATED 204 10^3/uL (150-450); RED BLOOD COUNT 4.44 10^6/uL (4.00-5.40); WHITE BLOOD COUNT 10.5 10^3/uL (4.0-10.0)
[2024-02-22 07:50] LABS: APPEARANCE, URINE CLEAR (CLEAR); BACTERIA, URINE AUTO NEGATIVE (NEGATIVE); BILIRUBIN, URINE AUTO NEGATIVE (NEGATIVE); BLOOD, URINE BLOOD NEGATIVE (NEGATIVE); COLOR, URINE YELLOW (YELLOW); GLUCOSE, URINE (UA) AUTO NEGATIVE (NEGATIVE); KETONE, URINE AUTO NEGATIVE (NEGATIVE); LEUKOCYTE ESTERASE, URINE AUTO NEGATIVE (NEGATIVE); MUCUS, URINE SMALL (NEGATIVE); NITRITE, URINE AUTO NEGATIVE (NEGATIVE); PROTEIN, URINE AUTO NEGATIVE (NEGATIVE); RBC, URINE AUTO 1 /HPF (0-3); SPECIFIC GRAVITY URINE AUTO 1.029 (1.002-1.035); SQUAMOUS EPITHELIAL CELL UR AU 2 /HPF (0-6); UROBILINOGEN, URINE AUTO 0.2 mg/dL (0.0-2.0); WBC, URINE AUTO 1 /HPF (0-3)
[2024-02-22 07:59] LABS: INR 0.95; PARTIAL THROMBOPLASTIN TIME 26.5 SECONDS (24.8-34.2); PROTHROMBIN TIME 12.4 SECONDS (12.5-14.5)
[2024-02-22 08:17] LABS: ALBUMIN 3.9 G/DL (3.2-5.2); ALKALINE PHOSPHATASE 61 U/L (46-116); ALT/SGPT 33 U/L (7.0-40); AST/SGOT 22 U/L (<34); BILIRUBIN,TOTAL 0.3 MG/DL (0.3-1.2); BLOOD UREA NITROGEN 18 MG/DL (9-23); CALCIUM LEVEL 8.8 MG/DL (8.5-10.1); CARBON DIOXIDE LEVEL 29 MMOL/L (20-31); CHLORIDE LEVEL 107 MMOL/L (98-107); CHOLESTEROL LEVEL 165 MG/DL (<200); CHOLESTEROL RISK RATIO 2.69 (<5); CREATININE FOR GFR 0.73 MG/DL (0.55-1.30); GLOMERULAR FILTRATION RATE > 60.0 (>51); GLUCOSE, FASTING 99 MG/DL (60-100); HDL CHOLESTEROL 61.3 MG/DL (>40); LDL CHOLESTEROL 96.5 MG/DL (<100); NON-HDL-C 103.7 MG/DL; POTASSIUM SERUM 3.8 MMOL/L (3.5-5.1); SODIUM LEVEL 142 MMOL/L (136-145); TOTAL PROTEIN 6.6 G/DL (5.7-8.2); TRIGLYCERIDES LEVEL 36 MG/DL (<150)
[2024-02-22 08:19] LABS: TOTAL 25(OH) VITAMIN D 32.5 NG/ML (20.0-100.0)
[2024-02-22 10:02] LABS: HEMOGLOBIN A1c 5.3 % (4.0-6.0)
== END ==
LOC: M LAB 06:36
PROVIDERS: ATTEND Nurse Practitioner Adult Health
DX: Z01.818 Encounter for other preprocedural examination (principal); E11.9 Type 2 diabetes mellitus without complications; E55.9 Vitamin D deficiency, unspecified

== ENCOUNTER → 2024-04-12 | Outpatient (CLI) | payer BC | LOC: M RAD 06:31 | PROVIDERS: ATTEND Nurse Practitioner Gerontology | DX: Z98.1 Arthrodesis status (principal) ==

== ENCOUNTER → 2024-08-11 | Outpatient (CLI) | payer BC | LOC: M RAD 08:39 | PROVIDERS: ATTEND Nurse Practitioner Gerontology | DX: Z98.1 Arthrodesis status (principal) ==

== ENCOUNTER → 2024-08-25 | Outpatient (CLI) | payer BC ==
[2024-08-25 07:16] LABS: APPEARANCE, URINE HAZY (CLEAR); BACTERIA, URINE AUTO NEGATIVE (NEGATIVE); BILIRUBIN, URINE AUTO NEGATIVE (NEGATIVE); BLOOD, URINE BLOOD NEGATIVE (NEGATIVE); COLOR, URINE YELLOW (YELLOW); GLUCOSE, URINE (UA) AUTO NEGATIVE (NEGATIVE); KETONE, URINE AUTO NEGATIVE (NEGATIVE); LEUKOCYTE ESTERASE, URINE AUTO NEGATIVE (NEGATIVE); MUCUS, URINE SMALL (NEGATIVE); NITRITE, URINE AUTO NEGATIVE (NEGATIVE); PROTEIN, URINE AUTO NEGATIVE (NEGATIVE); RBC, URINE AUTO 0 /HPF (0-3); SPECIFIC GRAVITY URINE AUTO 1.026 (1.002-1.035); SQUAMOUS EPITHELIAL CELL UR AU 2 /HPF (0-6); UROBILINOGEN, URINE AUTO 0.2 mg/dL (0.0-2.0); WBC, URINE AUTO 1 /HPF (0-3)
[2024-08-25 07:33] LABS: MALB URINE SIEMENS < 3.0 MG/L
[2024-08-25 07:33] LABS: BLOOD UREA NITROGEN 15 MG/DL (9-23); CALCIUM LEVEL 8.8 MG/DL (8.5-10.1); CARBON DIOXIDE LEVEL 27 MMOL/L (20-31); CHLORIDE LEVEL 113 MMOL/L (98-107); CREATININE FOR GFR 0.67 MG/DL (0.55-1.30); GLOMERULAR FILTRATION RATE > 60.0 (>51); GLUCOSE, FASTING 106 MG/DL (60-100); POTASSIUM SERUM 4.1 MMOL/L (3.5-5.1); SODIUM LEVEL 144 MMOL/L (136-145)
[2024-08-25 07:44] LABS: CREATININE, URINE 242.9 MG/DL; MAU/CREAT RATIO 1.2 MCG/MG (0.0-30.0)
[2024-08-25 08:00] LABS: HEMOGLOBIN A1c 5.4 % (4.0-6.0)
== END ==
LOC: M LAB 06:25
PROVIDERS: ATTEND Student in an Organized Health Care Education/Training Program
DX: E11.9 Type 2 diabetes mellitus without complications (principal); E66.9 Obesity, unspecified; Z68.30 Body mass index [BMI] 30.0-30.9, adult

== ENCOUNTER → 2024-11-28 | Outpatient (CLI) | payer BC ==
[2024-11-28 08:19] LABS: BLOOD UREA NITROGEN 16 MG/DL (9-23); CARBON DIOXIDE LEVEL 29 MMOL/L (20-31); CHLORIDE LEVEL 108 MMOL/L (98-107); GLOMERULAR FILTRATION RATE > 60.0 (>51); GLUCOSE, FASTING 100 MG/DL (60-100); POTASSIUM SERUM 4.5 MMOL/L (3.5-5.1); SODIUM LEVEL 144 MMOL/L (136-145)
[2024-11-28 08:49] LABS: HEMOGLOBIN A1c 5.5 % (4.0-6.0)
== END ==
LOC: M LAB 07:11
PROVIDERS: ATTEND Student in an Organized Health Care Education/Training Program
DX: E11.9 Type 2 diabetes mellitus without complications (principal)

== ENCOUNTER → 2025-02-12 | Outpatient (CLI) | payer BC ==
[2025-02-12 08:58] LABS: CHOLESTEROL RISK RATIO 2.64 (<5); HDL CHOLESTEROL 69.6 MG/DL (>40); LDL CHOLESTEROL 108.2 MG/DL (<100); NON-HDL-C 114.4 MG/DL
[2025-02-12 09:01] LABS: TOTAL 25(OH) VITAMIN D 34.2 NG/ML (20.0-100.0)
== END ==
LOC: M LAB 07:36
PROVIDERS: ATTEND Student in an Organized Health Care Education/Training Program
DX: R73.03 Prediabetes (principal)

== ENCOUNTER → 2025-03-08 | Outpatient (CLI) | payer BC | LOC: M RAD 15:35 | PROVIDERS: ATTEND Nurse Practitioner Gerontology | DX: Z98.1 Arthrodesis status (principal) ==

== ENCOUNTER → 2025-08-24 | Outpatient (CLI) | payer BC ==
[~2025-08-24] MED LIST changes: -IBUP1TAB6 PO; +SFHIBU600 PO
[2025-08-24 10:00] LABS: ALT/SGPT 34 U/L (7.0-40); AST/SGOT 27 U/L (<34); CALCIUM LEVEL 9.5 MG/DL (8.5-10.1); CARBON DIOXIDE LEVEL 31 MMOL/L (20-31); CHLORIDE LEVEL 105 MMOL/L (98-107); CREATININE FOR GFR 0.76 MG/DL (0.55-1.30); GLOMERULAR FILTRATION RATE > 90.0 (>51); POTASSIUM SERUM 4.2 MMOL/L (3.5-5.1); SODIUM LEVEL 144 MMOL/L (136-145)
[2025-08-24 10:01] LABS: ESTIMATED AVERAGE GLUCOSE 120.0 MG/DL (60-110)
== END ==
LOC: M LAB 08:40
PROVIDERS: ATTEND Student in an Organized Health Care Education/Training Program
DX: E11.9 Type 2 diabetes mellitus without complications (principal)